=== PATIENT | male | born 1970 | race Caucasian/White ===

== ENCOUNTER 2018-07-19 14:59 | Outpatient (CLI) | payer OTHER ==
--- NOTE | 2018-07-19 16:53 | Diagnostic Imaging Report ---
Indication: Knee pain, status post sports injury Technique: 3 views of the right knee Comparison: None Findings: No acute fractures. No dislocations. No suprapatellar effusion. The joint spaces are preserved. Impression: Negative
--- NOTE | 2018-07-19 16:54 | Diagnostic Imaging Report ---
Clinical Indication:Wrist pain, sports injury Technique: 3 views of the left wrist Comparison: None Findings: No acute fractures. No dislocations. The joint spaces are preserved. Impression: No acute bony trauma
== END 2018-07-19 16:59 | disposition home or self-care (01) ==
LOC: RAD 14:59
DX: S63.502A Unspecified sprain of left wrist, initial encounter (principal); S80.01XA Contusion of right knee, initial encounter; X58.XXXA Exposure to other specified factors, initial encounter; Y92.9 Unspecified place or not applicable